=== PATIENT | male | born 1995 | race Caucasian/White ===

== ENCOUNTER 2020-09-12 08:02 | Outpatient (CLI) | payer BC, OTHER ==
[2020-09-13 11:06] LABS: SARS-CoV-2 MS2 Positive; SARS-CoV-2 N Gene Negative; SARS-CoV-2 S Gene Negative; SARS-CoV-2 by NAA Not Detected (NotDetected); SARS-CoV-2 orf1ab Negative
== END 2020-09-12 08:03 | disposition home or self-care (01) ==
LOC: LABBT 08:02
PROVIDERS: ATTEND Surgery
DX: K60.3 Anal fistula (principal); Z20.828 Contact with and (suspected) exposure to other viral communicable diseases
CPT/HCPCS: 87635; U0003

== ENCOUNTER 2020-09-15 08:25 | Day surgery (SDC) | payer BC ==
[2020-09-14 14:09] VITALS: BMI 26.3
[2020-09-15] MEDS ORDERED: Lidocaine 1% PF 5 ML VIAL ONE (10:35)
[2020-09-15] MEDS ORDERED: PROPOFOL 200 MG/20 ML VIAL ONE (10:35)
[2020-09-15] MEDS ORDERED: Ondansetron PF 4 MG/2 ML Vial ONE (10:35)
[2020-09-15] MEDS ORDERED: Ketorolac Tromethamine 30 MG/ML VIAL ONE (10:35)
[2020-09-15] MEDS ORDERED: Dexamethasone 20 MG/5 ML VIAL ONE (10:35)
[2020-09-15] MEDS ORDERED: Lidocaine 2% Jelly 5 ML TUBE ONE (10:55)
[2020-09-15] MEDS ORDERED: Bupivacaine/Epinephrine 0.25% 30 ML VIAL ONE (10:55)
[2020-09-15] MEDS ORDERED: Fentanyl 100 MCG/2 ML VIAL ONE (10:57)
[2020-09-15] MEDS ORDERED: SUGAMMADEX SODIUM 200 MG/2 ML VIAL ONE (10:57)
[2020-09-15] MEDS ORDERED: Midazolam HCl 2 mg/2 ml Vial ONE (11:07)
--- NOTE | 2020-09-16 14:29 | OP ---
DATE OF PROCEDURE: 09/15/2020 PREOPERATIVE DIAGNOSIS: Anal fistula. POSTOPERATIVE DIAGNOSIS: Anal fistula. PROCEDURE PERFORMED: Anal fistulotomy staged with seton. ANESTHESIA: General. ESTIMATED BLOOD LOSS: Minimal. COMPLICATIONS: None. SPECIMEN: None. FINDINGS: Transsphincteric anal fistula. DESCRIPTION OF PROCEDURE: The patient was taken to the operating room and laid supine on the operative table. After general anesthetic was obtained, the patient was placed in lithotomy position. His perineum and anal areas were prepped and draped in a sterile fashion. There was an external opening posterior. This communicated to an internal opening. Between the outside opening toward the external sphincter, the tissues were opened up and the base cauterized. There was a segment of the fistula that was behind the external sphincter muscle and so this was not cut and a cutting seton of silk suture was left in place. The base of the wound was cauterized. There was no ongoing bleeding. There was no evidence of a mass. The patient was sent to Recovery in stable condition. All instrument counts, needle counts, and lap counts were correct. Job ID: [id number]
== END 2020-09-15 13:15 | disposition home or self-care (01) ==
LOC: SDC 08:25
PROVIDERS: ATTEND Surgery
PROC: 0DBQ3ZZ Excision of Anus, Percutaneous Approach (ICD-10-PCS; principal; 2020-09-15)
DX: K60.3 Anal fistula (principal)
CPT/HCPCS: J1100; J1885; J2250; J2405; J2704; J3010